=== PATIENT | male | born 1960 | race Caucasian/White ===

== ENCOUNTER → 2017-10-15 | Outpatient (CLI) | payer BC ==
--- NOTE | 2017-10-15 12:05 | Diagnostic Imaging Report ---
TECHNIQUE: Magnetic resonance imaging of the RIGHT KNEE was performed WITHOUT injected contrast. HISTORY: Tear of medial meniscus COMPARISON: None available FINDINGS: LIGAMENTS AND TENDONS: ACL: Intact PCL: Intact Collateral ligaments: Intact Iliotibial band: Unremarkable Popliteal tendon: Intact Extensor mechanism: Intact JOINT: Menisci: Medial: Mild contour irregularity, attenuation and increased intrasubstance signal of the anterior and posterior horns. Peripheral extrusion of the body. Lateral: Intact Articular Cartilage: Medial Compartment: High-grade to full-thickness erosion of the weightbearing cartilage. Lateral Compartment: Low to intermediate grade erosion and fissuring of the posterior weightbearing cartilage. Patellofemoral Compartment: Diffuse low-grade erosion and fibrillation of the patellar cartilage. Joint Fluid: Large nonspecific joint effusion with synovitis. BONES: No focal or infiltrative bone marrow replacing abnormality. No acute fracture. Subchondral bone marrow edema near the periphery of the medial tibial plateau. Mild subcortical cystic changes of the tibia underlying the region of the anterior horn insertion of the medial meniscus. SOFT TISSUES: Otherwise, unremarkable. IMPRESSION: 1. Medial compartment predominant tricompartmental degenerative changes, including mild degenerative tearing of the medial meniscus. 2. Synovitis and large nonspecific joint effusion. Signed by: Dr. Jesus Rey D.O., M.M.M. on 10/15/2017 12:02 PM
== END ==
LOC: MRI 07:39
PROVIDERS: ATTEND Specialist
DX: S83.241A Other tear of medial meniscus, current injury, right knee, initial encounter (principal)

== ENCOUNTER → 2017-11-07 | Day surgery (SDC) | payer BC ==
[~2017-11-07] MED LIST: BUPIVACAINE 0.5%/EPI 30 ML SDV INJ ONE; CLINDAMYCIN PHOS 900MG/ D5W 50 50 ML IV ONE; DEXAMETHASONE SOD PHOS INJ 4 MG/ML VIAL ONE; FENTANYL CITRATE/PF 100MCG/2 ML INJ ONE; FUROSEMIDE10 MG/1 M1 PO; KETOROLAC TROMETHAMINE 30 MG/ML VIAL ONE; LIDOCAINE HCL 2% LOCAL INJ 5 ML SDV VIAL INJ ONE; LOSARTAN POTAS100 MG PO; METOPROLOL SUCC50 MG PO; ONDANSETRON HCL INJ 2 MG/ML VIAL ONE; PROPOFOL IV EMULSION 10 MG/ML 20 ML VIAL ONE; SEVOFLURANE INHAL SOLN 250 ML PEN BTL ONE
--- OUTSIDE RECORDS SUMMARY | 2017-11-07 11:52 | XMS REPORT ---
Author Author [facility] Address Unknown Phone Unavailable Care Team Providers Care Catering Driver Name Role Phone MAO PENDLETON Unavailable Unavailable Problems This patient has no known problems. Allergies, Adverse Reactions, Alerts This patient has no known allergies or adverse reactions. Medications This patient has no known medications. Results Test Description Test Time Test Comments Text Results Atomic Results Result Comments MRI RIGHT KNEE WO [address] [address] Patient Name: ELODIA BENTLEY MR #: [id number] : 1960 Age/Sex: 57/M Req #: [id number] [facility] Physician: Ordered by: MAO PENDLETON MD Report #: [id number] Location: MRI Room/Bed: Procedure: [id number] MRI/MRI RIGHT KNEE WO Exam Date: 10/15/17 Exam Time: 0810 REPORT STATUS: Signed TECHNIQUE: Magnetic resonance imaging of the RIGHT KNEE was performed WITHOUT injected contrast. HISTORY: Tear of medial meniscus COMPARISON: None available FINDINGS: LIGAMENTS AND TENDONS: ACL: Intact PCL: Intact Collateral ligaments: Intact Iliotibial band: Unremarkable Popliteal tendon: Intact Extensor mechanism: Intact JOINT: Menisci: Medial: Mild contour irregularity, attenuation and increased intrasubstance signal of the anterior and posterior horns. Peripheral extrusion of the body. Lateral: Intact Articular Cartilage: Medial Compartment: High-grade to full-thickness erosion of the weightbearing cartilage. Lateral Compartment: Low to intermediate grade erosion and fissuring of the posterior weightbearing cartilage. Patellofemoral Compartment: Diffuse low-grade erosion and fibrillation of the patellar cartilage. Joint Fluid: Large nonspecific joint effusion with synovitis. BONES: No focal or infiltrative bone marrow replacing abnormality. No acute fracture. Subchondral bone marrow edema near the periphery of the medial tibial plateau. Mild subcortical cystic changes of the tibia underlying the region of the anterior horn insertion of the medial meniscus. SOFT TISSUES: Otherwise, unremarkable. IMPRESSION: 1. Medial compartment predominant tricompartmental degenerative changes, including mild degenerative tearing of the medial meniscus. 2. Synovitis and large nonspecific joint effusion. Signed by: Dr. Parul Rey D.O., M.M.M. on 10/15/2017 12:02 PM Dictated By: PARUL REY DO 1202 Transcribed By: TRACY on 10/15/17 1202 COPY TO: MAO PENDLETON MD
--- NOTE | 2017-11-08 10:00 | Operative Report ---
DATE OF PROCEDURE: November 07, 2017 PREOPERATIVE DIAGNOSES 1. Right knee medial meniscus tear. 2. Right knee degenerative joint disease of the knee. POSTOPERATIVE DIAGNOSES 1. Right knee medial meniscus tear. 2. Right knee degenerative joint disease of the knee. 3. Right knee symptomatic medial shelf plica. PROCEDURES PERFORMED 1. Right knee examination under anesthesia. 2. Right knee arthroscopy. 3. Right knee partial medial meniscectomy. 4. Right knee chondroplasty of the patella, the trochlea, the medial femoral condyle, medial tibial plateau, lateral femoral condyle and lateral tibial plateau as well as a resection of medial shelf plica. SALES REPRESENT[employer]IVE [employer]: None. ANESTHESIA: General endotracheal intubation anesthesia. IV FLUIDS: Per the anesthesia record. DESCRIPTION OF PROCEDURE: Mr. Craig was taken to the operating room and placed in the supine position on the operating table. Following induction of general anesthesia as well as endotracheal intubation, the patient's right upper extremity was examined under anesthesia. He was found to have a 3+ effusion of the knee joint but an otherwise ligamentously stable knee. The patient's lower extremity was prepped and draped in the standard surgical fashion. A 2-portal technique was used to provide this patient arthroscopic evaluation of the knee joint. The scope cannula was placed within the knee joint, and approximately 75 mL of normal-appearing joint fluid was extravasated from the joint. The scope was then placed in the joint atraumatically. Examination of the suprapatellar pouch, medial and lateral gutters found no evidence of loose bodies. There was, however, evidence of chondromalacia of the patellar and trochlear surfaces. Scope was advanced in the medial compartment. Examination of the medial compartment demonstrated a torn medial meniscus. There was also chondromalacia of the articulating surfaces. A combination of biting forceps and a motorized shaver was used to resect the torn portion of the meniscus. Chondroplasties of the medial femoral condyle and medial tibial plateau were performed at this time. The scope was then advanced into the intercondylar notch. Anterior cruciate ligament was identified and found to be intact. Scope was advanced into the lateral compartment, and chondromalacia of the articulating surfaces was encountered. Chondroplasties of the lateral femoral condyle and lateral tibial plateau were performed at this time. The scope was then placed in the suprapatellar pouch. Patient had a large and inflamed medial shelf plica interdigitating between the patella and trochlea. This was resected arthroscopically. Chondroplasties of the lateral femoral condyle and lateral tibial plateau were performed at this time. This was resected at this time arthroscopically. A chondroplasty of the patella and trochlea was performed. The knee was deflated of its sterile normal saline. Each of the portal sites was closed using 4-0 nylon suture. Portal sites as well as the knee itself were then injected with 0.5% Marcaine with epinephrine. Sterile dressings were applied. The patient was awakened and taken to the postanesthesia care unit in stable condition. Job#: [id number]
== END | disposition home or self-care (01) ==
LOC: OR 11:49
PROVIDERS: ATTEND Specialist
DX: S83.221A Peripheral tear of medial meniscus, current injury, right knee, initial encounter (principal); M17.11 Unilateral primary osteoarthritis, right knee; M67.51 Plica syndrome, right knee; M22.41 Chondromalacia patellae, right knee; I10 Essential (primary) hypertension; E78.5 Hyperlipidemia, unspecified; X58.XXXA Exposure to other specified factors, initial encounter; Z01.810 Encounter for preprocedural cardiovascular examination; Z68.33 Body mass index [BMI] 33.0-33.9, adult
CPT/HCPCS: 29881; 93005; J1100; J1885; J2001; J2405